=== PATIENT | female | born 1980 | race Asian ===

== ENCOUNTER 2016-07-03 00:05 | Inpatient (IN) | payer BC ==
[~2016-07-03] VITALS: Ht 170.2 cm; Wt 91.6 kg
[2016-07-03] MEDS ORDERED: FERROUS SULFAT325 MG PO (00:26)
[2016-07-03] MEDS ORDERED: OXYTOCIN 20 UNITS/LR PREMIX 1,000 ML IV SCH (00:27)
[2016-07-03] MEDS ORDERED: PROMETHAZINE 25 MG/ML VIAL IVP PRN (00:30)
[2016-07-03] MEDS ORDERED: IBUPROFEN 800 MG TAB PO PRN (00:30)
[2016-07-03] MEDS ORDERED: METHYLERGONOVINE 0.2 MG/ML AMP IM SCH (00:30)
[2016-07-03] MEDS ORDERED: CARBOPROST 250 MCG/ML AMP IM PRN (00:30)
[2016-07-03] MEDS ORDERED: NALBUPHINE 10 MG/ML AMP IVP PRN (00:30)
[2016-07-03] MEDS ORDERED: OXYTOCIN 10 UNITS/ML VIAL IM SCH (00:30)
[2016-07-03] MEDS ORDERED: CLINDAMYCIN 900 MG in DEXTROSE 5% 100 ML IV SCH (01:30)
[2016-07-03] MEDS ORDERED: CLINDAMYCIN 900 MG/6 ML VIAL IV ONE ×2 (01:32→08:47)
[2016-07-03 02:00] VITALS: BP 99/64
[2016-07-03] MEDS ORDERED: CLINDAMYCIN 600 MG in DEXTROSE 5% 50 ML IV SCH ×2 (02:00→06:00)
[2016-07-03] MEDS: LACTATED RINGERS 1,000 ML IV SCH ×2 (02:47→09:05)
[2016-07-03] MEDS ORDERED: MISOPROSTOL 25 MCG TAB ONE (03:27)
[2016-07-03] MEDS ORDERED: MISOPROSTOL 25 MCG TAB VG SCH (04:00)
[2016-07-03] MEDS ORDERED: ROPIVACAINE 0.2%/NS PREMIX 250 ML EPI ONE (08:48)
[2016-07-03] MEDS: CLINDAMYCIN 900 MG in DEXTROSE 5% 100 ML IV SCH ×2 (09:11→15:26)
[2016-07-03] MEDS ORDERED: OXYTOCIN 20 UNITS/LR PREMIX 1,000 ML IV ONE (09:30)
[2016-07-03] MEDS ORDERED: OXYTOCIN 10 UNITS/ML VIAL ONE (16:27)
[2016-07-03] MEDS ORDERED: WITCH HAZEL 40 PAD PACKAGE TP PRN (17:40)
[2016-07-03] MEDS ORDERED: oxyCODONE/APAP 5/325 MG 1 TAB TAB PO PRN (17:40)
[2016-07-03] MEDS ORDERED: BENZOCAINE/MENTHOL 20%-0.5% 60 GM CAN TP PRN (17:40)
[2016-07-03] MEDS ORDERED: METHYLERGONOVINE 0.2 MG/ML AMP IM PRN (17:40)
[2016-07-03] MEDS ORDERED: HYDROcodone/APAP 5/325 MG 1 TAB TAB PO PRN (17:40)
[2016-07-03] MEDS ORDERED: MEASLES, MUMPS, AND RUBELLA 1 VIAL SQVAC PRN (17:40)
[2016-07-03] MEDS ORDERED: TEMAZEPAM 15 MG CAP PO PRN (17:40)
[2016-07-03] MEDS ORDERED: DOCUSATE SOD/SENNA 50/8.6 MG 1 TAB PO SCH (21:00)
[2016-07-03] MEDS: IBUPROFEN 800 MG TAB PO PRN (21:17)
[2016-07-04] MEDS: IBUPROFEN 800 MG TAB PO PRN ×2 (03:39→12:17)
--- NOTE | 2016-07-04 07:46 | NUR ---
PATIENT HAS BEEN SCREENED AND CATEGORIZED LOW NUTRITION RISK. PATIENT WILL BE SEEN WITHIN 7 DAYS OF ADMISSION. 07/09/[address]
== END 2016-07-04 20:30 | disposition home or self-care (01) | DRG 775 ==
LOC: MLD 00:05 → MFCC 20:47
PROVIDERS: ADMIT Obstetrics & Gynecology; ATTEND Obstetrics & Gynecology
PROC: 10E0XZZ Delivery of Products of Conception, External Approach (ICD-10-PCS; principal; 2016-07-03)
PROC: 3E033VJ Introduction of Other Hormone into Peripheral Vein, Percutaneous Approach (ICD-10-PCS; 2016-07-03)
PROC: 3E0P7GC Introduction of Other Therapeutic Substance into Female Reproductive, Via Natural or Artificial Opening (ICD-10-PCS; 2016-07-03)
PROC: 10907ZC Drainage of Amniotic Fluid, Therapeutic from Products of Conception, Via Natural or Artificial Opening (ICD-10-PCS; 2016-07-03)
PROC: 0W8NXZZ Division of Female Perineum, External Approach (ICD-10-PCS; 2016-07-03)
PROC: 00HU33Z Insertion of Infusion Device into Spinal Canal, Percutaneous Approach (ICD-10-PCS; 2016-07-03)
PROC: 3E0R3CZ (ICD-10-PCS; 2016-07-03)
PROC: 3E0234Z Introduction of Serum, Toxoid and Vaccine into Muscle, Percutaneous Approach (ICD-10-PCS; 2016-07-03)
DX: O24.429 Gestational diabetes mellitus in childbirth, unspecified control (principal); O99.824 Streptococcus B carrier state complicating childbirth; O77.0 Labor and delivery complicated by meconium in amniotic fluid; Z88.0 Allergy status to penicillin; Z37.0 Single live birth; Z3A.40 40 weeks gestation of pregnancy; Z23 Encounter for immunization